=== PATIENT | male | born 1945 | race African-American/Black ===

== ENCOUNTER 2021-09-04 14:07 | Emergency (ER) | payer OTHER ==
[~2021-09-04] VITALS: Ht 170.2 cm; Wt 90.0 kg
[2021-09-04] MEDS ORDERED: IBUPROFEN 600MG TABLET PO STA (15:25)
[2021-09-04] MEDS ORDERED: HYDROCODONE/ACETAMINOPHEN 5/325MG TABLET PO STA (15:25)
[2021-09-04 15:58] LABS: CLARITY URINE TURBID (CLEAR); COLOR URINE YELLOW (YELLOW); KETONES URINE NEGATIVE (NEGATIVE); LEUKOCYTE ESTERASE URINE 3+ (NEGATIVE); NITRITE URINE NEGATIVE (NEGATIVE); OCCULT BLOOD URINE 1+ (NEGATIVE); PH URINE 6.5 (4.5-8.0); PROTEIN URINE 1+ (NEGATIVE); SPECIFIC GRAVITY URINE 1.012 (1.005-1.030)
[2021-09-04] MEDS ORDERED: CEFTRIAXONE 1 G PREMIX 50 ML IV ONE (16:15)
[2021-09-04] MEDS ORDERED: SODIUM CHLORIDE 0.9% 1,000 ML IV ONE (16:15)
[2021-09-04 16:59] LABS: BASOPHILS % 0.3 % (0.0-2.0); HEMATOCRIT. 32.6 % (42.0-52.0); HEMOGLOBIN. 10.8 g/dL (14.0-18.0); MEAN CORPUSCULAR HEMOGLOBIN 29.4 pg (28.0-32.0); MEAN CORPUSCULAR VOLUME 88.4 fL (80.0-94.0); MEAN PLATELET VOLUME 8.1 fl (7.4-10.4); MONOCYTES % 8.7 % (2.0-8.0); PLATELET 242 x1000/uL (130-400); RED BLOOD CELL COUNT 3.68 mill/uL (4.7-6.1); RED CELL DISTRIBUTION WIDTH 13.9 % (11.6-14.6)
[2021-09-04 17:02] LABS: CHLORIDE 113 mEq/L (98-107)
[2021-09-05 00:48] VITALS: BP 163/78
== END 2021-09-05 00:54 | disposition short-term general hospital (02) ==
LOC: ER 14:21
DX: N13.9 Obstructive and reflux uropathy, unspecified (principal); N39.0 Urinary tract infection, site not specified; N19 Unspecified kidney failure; E11.9 Type 2 diabetes mellitus without complications; I10 Essential (primary) hypertension
CPT/HCPCS: 36415; 74176; 80053; 81003; 85025; 87086; 96365; 99284; J0696; J7030